=== PATIENT | female | born 1985 | race Asian ===

== ENCOUNTER → 2016-09-07 | Outpatient (CLI) | payer MEDICAID ==
[~2016-09-07] MED LIST: BIRTH CONTROL PILL; IBUPROFEN800 MG PO; MULTI VITAMIN1 EACH; NITROFURANTOIN100 M3 PO
--- NOTE | ~2016-09-07 | CR63 ---
[facility] A Service of [facility] & [facility] RADIOLOGY TEXT RESULTS PATIENT: DOMINIC ALVARADO LOCATION: [facility] : 89 UNIT #: [id number] AGE: [address]: DOLLY RICHARDSON APRN SEX: F ORDER DR: [id number] [address] [address] [id number] O MR#: [id number] Acc #: [id number] NAME: DOMINIC ALVARADO : 1985 SEX: F STUDY DATE/TIME: 09/07/2016 15:50 UNIT: SRAD ROOM: STUDY DESCRIPTION: CR Chest 2 View Attending Physician: Dolly Richardson Aprn Referring Physician: Dolly Richardson Aprn Ordering Physician: Dolly Richardson Aprn Primary Care Physician: Sarah Hobbs A.P.R.N. MEDICAL IMAGING REPORT This report is preliminary unless electronic signature is present. EXAM Chest PA and lateral 09/07/2016 HISTORY Cough for 2 months. Antibiotics not working. FINDINGS The heart is normal in size. The lungs are clear. There are no pleural effusions. Thoracolumbar scoliosis is noted. IMPRESSION Thoracolumbar scoliosis. No active pulmonary disease. Dictated by... Jose Soto M.D. THIS IS AN ELECTRONICALLY VERIFIED REPORT Jose Soto M.D. at 09/09/2016 9:04 AM DIOGO/umair TD: 09/08/2016 06:17 JOB #: [id number] MEDICAL IMAGING REPORT
== END | disposition home or self-care (01) ==
LOC: SRAD 15:35
DX: R05 Cough (principal); M41.85 Other forms of scoliosis, thoracolumbar region
CPT/HCPCS: 71020